=== PATIENT | female | born 2000 | race American Indian/Alaskan Native ===

== ENCOUNTER 2023-02-01 15:49 | Emergency (ER) | payer MEDICAID ==
[~2023-02-01] VITALS: Ht 149.9 cm; Wt 59.0 kg
[2023-02-01 16:56] VITALS: BP 104/65
[2023-02-01] MEDS ORDERED: KEN0.1O TP (17:48)
[2023-02-01 18:10] VITALS: PULSE 89; RESP 14; TEMP 98.5; O2SAT 98
== END 2023-02-01 18:15 | disposition home or self-care (01) ==
LOC: ER 15:51
DX: L23.9 Allergic contact dermatitis, unspecified cause (principal); Z88.8 Allergy status to other drugs, medicaments and biological substances; Z79.899 Other long term (current) drug therapy
CPT/HCPCS: 99283

== ENCOUNTER 2024-11-27 21:20 | Emergency (ER) | payer MEDICAID ==
[~2024-11-27] VITALS: Ht 149.9 cm; Wt 68.9 kg
--- NOTE | 2024-11-27 23:06 | Physician Documentation ---
History of Present Illness ~ Chief Complaint: Rash Stated Complaint: RASH Time Seen by MD: 22:51 HPI Patient is a 24-year-old female that presents to the emergency department for re-evaluation a rash that she has had x1 week. She reports that she was seen at [facility] and she was placed on oral steroids for a week. Patient would like to have another course of oral steroids at this time. Medication Reconciliation Allergies: Coded Allergies: albuterol (Unverified Allergy, Mild, 02/01/23) heart arrhythmia Uncoded Allergies: SAFFRIS (Allergy, Mild, 02/01/23) migraines, blurry vision Review of Systems ROS As stated above in the HPI, otherwise all systems are reviewed and negative. Physical Exam Vital Signs: Temperature: 97.9, Heart Rate: 76, Respiratory Rate: 16, BP: 95/60, Pulse Oximetry: 97, Weight: 68.900 Oxygen Flow Rate: 0 Physical Exam VITALS: Reviewed and as above. GENERAL: Alert, no apparent distress. HEENT: Normocephalic, atraumatic, PERRL, EOMI, dry mucosa, no erythema RESPIRATORY: Lungs clear, normal breath sounds, no respiratory distress. CHEST: No accessory muscle use, no retractions CV: Regular rate, rhythm, no edema, no murmur, No: JVD GI: Soft, non-tender, bowels sounds present, no rebound, guarding, or rigidity BACK: No CVA tenderness, or swelling MUSCULOSKELETAL No deformities, no edema SKIN: Warm and dry, mild rash present to face, neck and chest. NEURO: Oriented x4, No motor or sensory deficit PSYCH: Normal mood and affect, no agitation Progress Results/Orders Results/Orders Vital Signs 11/27/24 21:27 Temp 97.9 Pulse 76 Resp 16 B/P (MAP) 95/60 Pulse Ox 97 O2 Flow Rate 0 Departure Disposition: 01 HOME / SELF CARE / HOMELESS Impression: Primary Impression: Contact dermatitis Additional Impression: Rash Condition: Stable Discharge Instructions: Contact Dermatitis Additional Instructions: This patient who presents with rash for one week consistent with resolving contact dermatitis. History and exam findings not consistent with dangerous etiologies of rash such as SJS/TEN, or secondary dangerous causes such as petechial rashes from thrombocytopenia or rickettsial infections. Rash does not appear urticarial with no signs of anaphylaxis either. Plan at this time is to treat symptomatically, instruct to follow up with PCP or derm PRN. Patient prescribed hydrocortisone cream instructed. Patient will follow up with her primary care provider. Patient will return to the emergency department if she has any worsening of recurrent symptoms or any additional concerning symptoms that were discussed her to be present. Referrals: NO PRIMARY CARE PROVIDER (PCP) Prescriptions Hydrocortisone (hydrocortisone 1% cream) 1 % Cream..g. 1 APPLIC TOP Q12H for 7 Days, #30 GM 0 Refills apply to affected area(s) Prov: KYUNG GONZALES 11/27/24 Education Educated: Patient Educated regarding: diagnosis Signature Scribe Signature: A Attestation: Scribed for Kyung Gonzales by MONSERRAT Multani . 11/27/24 23:13 KYUNG GONZALES Nov 27, 2024 23:06
[2024-11-27] MEDS ORDERED: HYDR28CR14 TOP (23:12)
[2024-11-27 23:18] VITALS: BP 103/62; PULSE 78; RESP 16; TEMP 98.6; O2SAT 99
== END 2024-11-27 23:19 | disposition home or self-care (01) ==
LOC: ER 21:20
DX: L25.9 Unspecified contact dermatitis, unspecified cause (principal)
CPT/HCPCS: 99282